=== PATIENT | female | born 2000 | race Caucasian/White ===

== ENCOUNTER 2021-04-09 17:21 | Emergency (ER) | payer SELFPAY ==
[2021-04-09] MEDS ORDERED: MEDROL 4MG DOSEP4 MG PO (18:11)
[2021-04-09] MEDS ORDERED: VENTOLIN HFA IN18 GM INH (18:11)
== END 2021-04-09 18:16 | disposition home or self-care (01) ==
LOC: FER 17:21
DX: U07.1 COVID-19 (principal)
CPT/HCPCS: 71045; 93005; J1100